=== PATIENT | female | born 1960 | race Caucasian/White ===

== ENCOUNTER 2022-03-05 08:20 | Day surgery (SDC) | payer MEDICARE ==
[~2022-03-05] VITALS: Ht 172.7 cm; Wt 80.6 kg
[2022-03-05] VITALS (15 sets, daily range): BP systolic 123–146; BP diastolic 59–86
[2022-03-05] MEDS ORDERED: normal saline 1000ml 1,000 ML IV PRN (08:40)
[2022-03-05] MEDS ORDERED: DULO60CA65 PO (09:04)
[2022-03-05] MEDS ORDERED: TRAM50TA2 PO (09:04)
[2022-03-05] MEDS ORDERED: CHOL200026 PO (09:04)
[2022-03-05] MEDS ORDERED: METO-395 PO (09:04)
[2022-03-05 09:07] LABS: BASOPHILS # (AUTO) 0.1 X10'3 (0-0.2); BASOPHILS % (AUTO) 1.2 % (0-1); EOSINOPHILS # (AUTO) 0.3 X10'3 (0-0.9); EOSINOPHILS % (AUTO) 5.1 % (0-6); HEMOGLOBIN 14.8 g/dl (12.0-16.0); LYMPHOCYTES # (AUTO) 1.1 X10'3 (1.1-4.8); LYMPHOCYTES % (AUTO) 19.5 % (21-51); MEAN CORPUSCULAR HEMOGLOBIN 31.6 PG (27.0-31.0); MEAN CORPUSCULAR HGB CONC 34.4 g/dL (33.0-36.5); MEAN CORPUSCULAR VOLUME 91.9 FL (78-98); MEAN PLATELET VOLUME 7.2 FL (7.4-10.4); MONOCYTES # (AUTO) 0.4 X10'3 (0-0.9); MONOCYTES % (AUTO) 6.5 % (2-12); NEUTROPHILS # (AUTO) 3.7 X10'3 (1.8-7.7); NEUTROPHILS % (AUTO) 67.7 % (42-75); PLATELET COUNT 324 X10'3 (140-440); RED BLOOD COUNT 4.68 X10'6 (4.20-5.60); RED CELL DISTRIBUTION WIDTH 12.6 % (11.5-14.5); WHITE BLOOD COUNT 5.5 X10'3 (4.5-11.0)
[2022-03-05 09:18] LABS: ALBUMIN 3.5 G/DL (3.4-5.0); ANION GAP 7 (8-16); BLOOD UREA NITROGEN 12 MG/DL (7-18); BUN/CREATININE RATIO 13.2 (6.6-38.0); CHLORIDE 103 MMOL/L (99-107); CREATININE 0.91 MG/DL (0.40-0.90); GLUCOSE 132 MG/DL (70-104); POTASSIUM 3.9 MMOL/L (3.5-5.1); SODIUM 139 MMOL/L (135-145); eGFR 63 ML/MIN
[2022-03-05] MEDS ORDERED: fentaNYL/PF 50MCG/1 ML 2ML syringe ONE (09:52)
[2022-03-05] MEDS ORDERED: midazolam 1 mg/ML 2ml injection ONE (09:52)
[2022-03-05] MEDS ORDERED: LIDOcaine 1% (10mg/ml) 2ml vial ONE (09:52)
[2022-03-05] MEDS ORDERED: normal saline 1000ml 1,000 ML IV SCH (10:00)
== END 2022-03-05 13:40 | disposition home or self-care (01) ==
LOC: SSTAY O 08:20
PROVIDERS: ATTEND Radiology Diagnostic Radiology
DX: K76.89 Other specified diseases of liver (principal); C78.7 Secondary malignant neoplasm of liver and intrahepatic bile duct; I10 Essential (primary) hypertension; F43.10 Post-traumatic stress disorder, unspecified; F31.9 Bipolar disorder, unspecified; I25.10 Atherosclerotic heart disease of native coronary artery without angina pectoris; Z85.3 Personal history of malignant neoplasm of breast; Z88.8 Allergy status to other drugs, medicaments and biological substances; Z88.5 Allergy status to narcotic agent; Z79.899 Other long term (current) drug therapy; M85.80 Other specified disorders of bone density and structure, unspecified site; Z98.890 Other specified postprocedural states; Z90.13 Acquired absence of bilateral breasts and nipples; Z98.51 Tubal ligation status; Z80.3 Family history of malignant neoplasm of breast; Z80.8 Family history of malignant neoplasm of other organs or systems
CPT/HCPCS: 36415; 47000; 76942; 80048; 85025; 85610; J3010; J3490; J7030; A4615; J2250

== ENCOUNTER 2022-03-21 08:10 | Day surgery (SDC) | payer MEDICARE ==
[~2022-03-21] VITALS: Ht 172.7 cm; Wt 81.6 kg
[~2022-03-21 08:10] MED LIST: CHOL200026 PO; DULO60CA65 PO; METO-395 PO; TRAM50TA2 PO
[2022-03-21 08:40] VITALS: BP 108/75
[2022-03-21] MEDS ORDERED: normal saline 1000ml 1,000 ML IV PRN (08:55)
[2022-03-21 09:16] LABS: BASOPHILS % (AUTO) 1.1 % (0-1); EOSINOPHILS # (AUTO) 0.2 X10'3 (0-0.9); HEMOGLOBIN 14.3 g/dl (12.0-16.0); LYMPHOCYTES # (AUTO) 0.7 X10'3 (1.1-4.8); LYMPHOCYTES % (AUTO) 18.2 % (21-51); MEAN CORPUSCULAR HEMOGLOBIN 31.3 PG (27.0-31.0); MEAN CORPUSCULAR HGB CONC 33.9 g/dL (33.0-36.5); MEAN CORPUSCULAR VOLUME 92.4 FL (78-98); MEAN PLATELET VOLUME 7.1 FL (7.4-10.4); MONOCYTES # (AUTO) 0.4 X10'3 (0-0.9); MONOCYTES % (AUTO) 10.5 % (2-12); NEUTROPHILS # (AUTO) 2.5 X10'3 (1.8-7.7); NEUTROPHILS % (AUTO) 65.2 % (42-75); PLATELET COUNT 265 X10'3 (140-440); RED BLOOD COUNT 4.55 X10'6 (4.20-5.60); RED CELL DISTRIBUTION WIDTH 12.7 % (11.5-14.5); WHITE BLOOD COUNT 3.9 X10'3 (4.5-11.0)
[2022-03-21] MEDS ORDERED: MORP15TA (09:18)
[2022-03-21] MEDS ORDERED: ONDA-103 PO (09:18)
[2022-03-21] MEDS ORDERED: MORP-92 PO (09:18)
[2022-03-21] MEDS ORDERED: CHOL20004 PO (09:19)
[2022-03-21] MEDS ORDERED: heparin sodium, porcine/PF 100unit/ml 5ML syringe ONE (09:34)
[2022-03-21] MEDS ORDERED: midazolam 1 mg/ML 2ml injection ONE (09:34)
[2022-03-21] MEDS ORDERED: LIDOcaine 1% 30ml preserv. free vial ONE (09:34)
[2022-03-21] MEDS ORDERED: fentaNYL/PF 50MCG/1 ML 2ML syringe ONE (09:34)
[2022-03-21 10:15] VITALS: BP 128/77
[2022-03-21 10:30] VITALS: BP 113/75
[2022-03-21 10:45] VITALS: BP 104/58
== END 2022-03-21 11:05 | disposition home or self-care (01) ==
LOC: SSTAY O 08:10
PROVIDERS: ATTEND Radiology Vascular & Interventional Radiology
DX: C50.911 Malignant neoplasm of unspecified site of right female breast (principal); Z88.5 Allergy status to narcotic agent; Z88.8 Allergy status to other drugs, medicaments and biological substances; Z79.899 Other long term (current) drug therapy; Z79.01 Long term (current) use of anticoagulants
CPT/HCPCS: 36415; 36561; 76937; 77001; 85025; 85610; 99152; C1788; C1894; J1642; J2250; J3010; J3490; J7030; A4620

== ENCOUNTER 2022-08-14 08:22 | Day surgery (SDC) | payer MEDICARE, OTHER ==
[~2022-08-14] VITALS: Ht 172.7 cm; Wt 77.1 kg
[2022-08-14] VITALS (14 sets, daily range): BP systolic 110–134; BP diastolic 62–83
[~2022-08-14 08:22] MED LIST changes: -CHOL200026 PO; +CHOL20004 PO; +MORP-92 PO; +MORP15TA; +ONDA-103 PO
[2022-08-14] MEDS ORDERED: APIX5TAB3 PO (08:46)
[2022-08-14 09:33] LABS: EOSINOPHILS # (AUTO) 0.1 X10'3 (0-0.9); EOSINOPHILS % (AUTO) 1.3 % (0-6); LYMPHOCYTES # (AUTO) 1.3 X10'3 (1.1-4.8); LYMPHOCYTES % (AUTO) 28.4 % (21-51); MEAN CORPUSCULAR HEMOGLOBIN 31.3 PG (27.0-31.0); MEAN CORPUSCULAR HGB CONC 33.5 g/dL (33.0-36.5); MEAN CORPUSCULAR VOLUME 93.4 FL (78-98); MEAN PLATELET VOLUME 7.2 FL (7.4-10.4); MONOCYTES # (AUTO) 0.2 X10'3 (0-0.9); MONOCYTES % (AUTO) 5.4 % (2-12); NEUTROPHILS # (AUTO) 2.8 X10'3 (1.8-7.7); NEUTROPHILS % (AUTO) 63.9 % (42-75); PRE OP HEMATOCRIT 37.3 % (35.0-45.0); PRE OP HEMOGLOBIN 12.5 g/dL (12.0-16.0); PRE OP PLATELET COUNT 271 X10'3 (140-440); RED CELL DISTRIBUTION WIDTH 14.9 % (11.5-14.5)
== END 2022-08-14 13:00 | disposition home or self-care (01) ==
LOC: SSTAY O 08:22
PROVIDERS: ATTEND Radiology Vascular & Interventional Radiology
DX: K76.89 Other specified diseases of liver (principal); C78.7 Secondary malignant neoplasm of liver and intrahepatic bile duct; C50.919 Malignant neoplasm of unspecified site of unspecified female breast; Z88.8 Allergy status to other drugs, medicaments and biological substances; Z88.5 Allergy status to narcotic agent; Z79.01 Long term (current) use of anticoagulants; Z79.899 Other long term (current) drug therapy
CPT/HCPCS: 36415; 47000; 77012; 85025; 85610; J7030; 88307; 88341; 88342